=== PATIENT | male | born 1990 | race Caucasian/White ===

== ENCOUNTER 2018-06-12 19:25 | Emergency (ER) | payer OTHER ==
[~2018-06-12] VITALS: Ht 180.3 cm; Wt 86.2 kg
[2018-06-12 19:30] VITALS: BP 130/85
[2018-06-12] MEDS ORDERED: ACETAMINOPHEN-1 EAC1 PO (19:44)
[2018-06-12] MEDS ORDERED: AMOXICILLIN 50500 MG PO (19:44)
== END 2018-06-12 19:58 | disposition home or self-care (01) ==
LOC: M.ERS 19:25
DX: K08.89 Other specified disorders of teeth and supporting structures (principal); Z88.8 Allergy status to other drugs, medicaments and biological substances